=== PATIENT | female | born 1945 | race African-American/Black ===

== ENCOUNTER 2017-04-30 15:52 | Emergency (ER) | payer MEDICARE, MEDICAID ==
[~2017-04-30] VITALS: Ht 160 cm; Wt 55.0 kg
[2017-04-30 18:05] LABS: CLARITY URINE CLEAR (CLEAR); COLOR URINE YELLOW (YELLOW); KETONES URINE NEGATIVE (NEGATIVE); LEUKOCYTE ESTERASE URINE NEGATIVE (NEGATIVE); NITRITE URINE NEGATIVE (NEGATIVE); OCCULT BLOOD URINE TRACE (NEGATIVE); PH URINE 5.5 (4.5-8.0); PROTEIN URINE NEGATIVE (NEGATIVE); SPECIFIC GRAVITY URINE 1.007 (1.005-1.030); UROBILINOGEN URINE 0.2 E.U./dL (0.2-1.0)
[2017-04-30 18:08] LABS: BASOPHILS % 0.9 % (0.0-2.0); CHLORIDE 107 mEq/L (98-107); EOSINOPHILS % 0.8 % (0.0-5.0); HEMATOCRIT. 42.6 % (36.0-48.0); HEMOGLOBIN. 14.6 g/dL (12.0-16.0); LYMPHOCYTES % 20.5 % (20.0-50.0); MEAN CORPUSCULAR VOLUME 96.6 fL (81.0-99.0); MEAN PLATELET VOLUME 6.9 fl (7.4-10.4); MONOCYTES % 9.1 % (2.0-8.0); NEUTROPHILS % 68.7 % (40.0-76.0); PLATELET 325 x1000/uL (130-400); RED BLOOD CELL COUNT 4.41 mill/uL (4.2-5.4); RED CELL DISTRIBUTION WIDTH 13.5 % (11.6-14.6)
[2017-04-30 18:17] LABS: CARBON DIOXIDE 27 mEq/L (21-32); ETHANOL BLOOD < 10 mg/dL
[2017-04-30 18:32] LABS: *AMPHETAMINES SCREEN URINE NEGATIVE (NEGATIVE); *BARBITURATES SCREEN URINE NEGATIVE (NEGATIVE); *BENZODIAZEPINES SCREEN URINE NEGATIVE (NEGATIVE); *COCAINE SCREEN URINE NEGATIVE (NEGATIVE); CANNABINOID URINE SCREEN NEGATIVE (NEGATIVE); METHADONE URINE SCREEN NEGATIVE (NEGATIVE); OPIATES URINE SCREEN NEGATIVE (NEGATIVE); PHENCYCLIDINE URINE SCREEN NEGATIVE (NEGATIVE)
[2017-04-30 19:51] VITALS: BP 148/82
== END 2017-04-30 19:53 | disposition home or self-care (01) ==
LOC: ER 18:13 → CANBEDREQ 19:52 → ER 19:53
DX: K04.7 Periapical abscess without sinus (principal); K02.9 Dental caries, unspecified; E86.0 Dehydration; R13.10 Dysphagia, unspecified; J44.9 Chronic obstructive pulmonary disease, unspecified; I10 Essential (primary) hypertension; F17.210 Nicotine dependence, cigarettes, uncomplicated; E83.52 Hypercalcemia; E87.6 Hypokalemia
CPT/HCPCS: 36415; 70450; 80053; 80305; 81001; 82962; 85025; 87040; 87086; 93005; 99285; G0482

== ENCOUNTER 2019-03-06 17:34 | Inpatient (IN) | payer MEDICARE, MEDICAID ==
[~2019-03-06] VITALS: Ht 167.6 cm; Wt 48.1 kg
[2019-03-06] MEDS ORDERED: SODIUM CHLORIDE 0.9% 1,000 ML IV ONE (18:17)
[2019-03-06] MEDS ORDERED: ONDANSETRON HCL 4MG/2ML INJ IV STA (18:17)
[2019-03-06] MEDS ORDERED: MORPHINE SULFATE 4 MG/ML CPJ (NOT FOR IM USE) IV STA (18:17)
[2019-03-06 18:46] LABS: CHLORIDE 97 mEq/L (98-107)
[2019-03-06 18:48] LABS: PROTHROMBIN TIME 9.9 sec (9.6-11.0)
[2019-03-06 18:51] LABS: BASOPHILS % 0.6 % (0.0-2.0); EOSINOPHILS % 0.1 % (0.0-5.0); HEMATOCRIT. 42.8 % (36.0-48.0); HEMOGLOBIN. 14.7 g/dL (12.0-16.0); LYMPHOCYTES % 8.9 % (20.0-50.0); MEAN CORPUSCULAR HEMOGLOBIN 33.5 pg (28.0-32.0); MEAN CORPUSCULAR VOLUME 97.7 fL (81.0-99.0); MEAN PLATELET VOLUME 7.6 fl (7.4-10.4); MONOCYTES % 9.4 % (2.0-8.0); PLATELET 263 x1000/uL (130-400); RED BLOOD CELL COUNT 4.37 mill/uL (4.2-5.4); RED CELL DISTRIBUTION WIDTH 13.1 % (11.6-14.6)
[2019-03-06 20:48] LABS: CLARITY URINE CLEAR (CLEAR); COLOR URINE YELLOW (YELLOW); KETONES URINE TRACE (NEGATIVE); LEUKOCYTE ESTERASE URINE 2+ (NEGATIVE); NITRITE URINE NEGATIVE (NEGATIVE); OCCULT BLOOD URINE NEGATIVE (NEGATIVE); PROTEIN URINE 1+ (NEGATIVE); SPECIFIC GRAVITY URINE 1.024 (1.005-1.030)
[2019-03-06] MEDS ORDERED: PIPERACILLIN/TAZ 3.375G PREMIX 50 ML IV ONE (21:30)
[2019-03-06] MEDS ORDERED: ONDANSETRON HCL 4MG/2ML INJ IV PRN (21:45)
[2019-03-06] MEDS ORDERED: ACETAMINOPHEN 325MG TABLET PO PRN (21:45)
[2019-03-06] MEDS ORDERED: LORAZEPAM 0.5MG TABLET PO PRN (21:45)
[2019-03-06] MEDS ORDERED: LEVOFLOXACIN 500MG PREMIX 100 ML IV SCH (21:45)
[2019-03-06] MEDS ORDERED: DIPHENHYDRAMINE 50MG/ML VIAL IV PRN (21:45)
[2019-03-06] MEDS ORDERED: LEVOFLOXACIN 500MG PREMIX 100 ML IV NR (23:00)
[2019-03-06] MEDS ORDERED: DILT60TA35 PO (23:45)
[2019-03-07] VITALS: BP 132/77
[2019-03-07] MEDS ORDERED: HYDROMORPHONE HCL/PF 2MG/ML CPJ IV PRN (00:08)
[2019-03-07] MEDS: SODIUM CHLORIDE 0.9% 1,000 ML IV SCH ×3 (01:38→16:11)
[2019-03-07 04:00] VITALS: BP 145/81
[2019-03-07 06:12] LABS: BASOPHILS % 0.4 % (0.0-2.0); EOSINOPHILS % 0.2 % (0.0-5.0); HEMATOCRIT. 39.9 % (36.0-48.0); HEMOGLOBIN. 13.7 g/dL (12.0-16.0); LYMPHOCYTES % 12.1 % (20.0-50.0); MEAN CORPUSCULAR HEMOGLOBIN 33.6 pg (28.0-32.0); MEAN CORPUSCULAR VOLUME 98.1 fL (81.0-99.0); MEAN PLATELET VOLUME 7.5 fl (7.4-10.4); MONOCYTES % 14.4 % (2.0-8.0); NEUTROPHILS % 72.9 % (40.0-76.0); PLATELET 257 x1000/uL (130-400); RED BLOOD CELL COUNT 4.07 mill/uL (4.2-5.4); RED CELL DISTRIBUTION WIDTH 13.5 % (11.6-14.6)
[2019-03-07 06:28] LABS: CHLORIDE 104 mEq/L (98-107)
[2019-03-07 06:45] LABS: PHOSPHORUS 2.6 mg/dL (2.5-4.9)
[2019-03-07 08:00] VITALS: BP 145/71
[2019-03-07] MEDS ORDERED: FAMOTIDINE 20MG/2ML VIAL IV SCH ×3 (09:00)
[2019-03-07] MEDS: FAMOTIDINE 20MG/2ML VIAL IV SCH ×2 (09:06→20:10)
[2019-03-07] MEDS: KETOROLAC 30MG/ML VIAL IV PRN ×2 (09:06→21:15)
[2019-03-07] MEDS: NICOTINE 14MG PATCH TD SCH (09:07)
[2019-03-07] MEDS ORDERED: IOHEXOL-300 100 ML BOTTLE ONE (10:12)
[2019-03-07 11:52] VITALS: BP 131/73
[2019-03-07 16:54] VITALS: BP 130/66
[2019-03-07 20:00] VITALS: BP 167/78
[2019-03-07] MEDS: LEVOFLOXACIN 250MG PREMIX 50 ML IV SCH (20:11)
[2019-03-07] MEDS: CLONIDINE 0.1MG TABLET PO PRN (21:11)
[2019-03-08] VITALS: BP 133/75
[2019-03-08] MEDS: SODIUM CHLORIDE 0.9% 1,000 ML IV SCH ×3 (00:25→16:49)
[2019-03-08 06:32] VITALS: BP 147/79
[2019-03-08 08:00] VITALS: BP 160/75
[2019-03-08] MEDS: NICOTINE 14MG PATCH TD SCH (08:40)
[2019-03-08] MEDS: FAMOTIDINE 20MG/2ML VIAL IV SCH (08:40)
[2019-03-08 12:00] VITALS: BP 110/77
[2019-03-08] MEDS: KETOROLAC 30MG/ML VIAL IV PRN ×2 (12:49→20:27)
[2019-03-08 16:00] VITALS: BP 152/74
[2019-03-08 20:00] VITALS: BP 123/80
[2019-03-08] MEDS: LEVOFLOXACIN 250MG PREMIX 50 ML IV SCH (20:16)
[2019-03-08] MEDS ORDERED: HYDRALAZINE 20MG/ML VIAL IV PRN (20:45)
[2019-03-08] MEDS: HYDRALAZINE 10 MG in SODIUM CHLORIDE 0.9% 49.5 ML IV PRN (23:28)
[2019-03-09] VITALS: BP 176/77
[2019-03-09] MEDS: SODIUM CHLORIDE 0.9% 1,000 ML IV SCH ×3 (00:27→16:08)
[2019-03-09 04:00] VITALS: BP 177/83
[2019-03-09] MEDS: HYDRALAZINE 10 MG in SODIUM CHLORIDE 0.9% 49.5 ML IV PRN ×3 (05:29→22:13)
[2019-03-09 06:33] LABS: HEMATOCRIT. 39.8 % (36.0-48.0); HEMOGLOBIN. 13.3 g/dL (12.0-16.0); MEAN CORPUSCULAR HEMOGLOBIN 33.2 pg (28.0-32.0); MEAN CORPUSCULAR VOLUME 99.2 fL (81.0-99.0); MEAN PLATELET VOLUME 7.6 fl (7.4-10.4); PLATELET 280 x1000/uL (130-400); RED BLOOD CELL COUNT 4.01 mill/uL (4.2-5.4); RED CELL DISTRIBUTION WIDTH 12.8 % (11.6-14.6)
[2019-03-09 06:34] LABS: CHLORIDE 110 mEq/L (98-107)
[2019-03-09 06:40] LABS: PHOSPHORUS 2.2 mg/dL (2.5-4.9)
[2019-03-09 08:00] VITALS: BP 154/68
[2019-03-09] MEDS: NICOTINE 14MG PATCH TD SCH (08:54)
[2019-03-09] MEDS: FAMOTIDINE 20MG/2ML VIAL IV SCH (08:54)
[2019-03-09] MEDS: KETOROLAC 30MG/ML VIAL IV PRN (08:54)
[2019-03-09 12:00] VITALS: BP 152/74
[2019-03-09 16:00] VITALS: BP 164/81
[2019-03-09] MEDS ORDERED: LORAZEPAM 2MG/ML CPJ IV PRN (18:00)
[2019-03-09 20:00] VITALS: BP 166/84
[2019-03-09] MEDS ORDERED: DEXT 5%/0.9% NACL 1,000 ML IV SCH (20:15)
[2019-03-09] MEDS: LEVOFLOXACIN 250MG PREMIX 50 ML IV SCH (21:01)
[2019-03-09] MEDS ORDERED: POTASSIUM PHOS,M-BASIC-D-BASIC 15 MMOL in DEXT 5% WATER 245 ML IV NR (21:30)
[2019-03-09] MEDS: DEXT 5%/0.9% NACL 1,000 ML IV SCH (23:02)
[2019-03-10] VITALS: BP 127/70
[2019-03-10] MEDS ORDERED: ENOXAPARIN 60MG/0.6ML SYR SUBCUT SCH (03:00)
[2019-03-10 04:00] VITALS: BP 139/81
[2019-03-10 07:15] LABS: ATYPICAL LYMPHOCYTES 2; PLATELET ESTIMATE NORMAL
[2019-03-10] MEDS: KETOROLAC 30MG/ML VIAL IV PRN (07:38)
[2019-03-10 08:00] VITALS: BP 149/82
[2019-03-10] MEDS ORDERED: ENOXAPARIN 30MG/0.3ML SYR SUBCUT SCH (09:00)
[2019-03-10] MEDS: NICOTINE 14MG PATCH TD SCH (10:48)
[2019-03-10] MEDS: FAMOTIDINE 20MG/2ML VIAL IV SCH (10:48)
[2019-03-10] MEDS: HYDROMORPHONE HCL/PF 2MG/ML CPJ IV PRN ×2 (10:57→15:06)
[2019-03-10 12:00] VITALS: BP 129/72
[2019-03-10 16:00] VITALS: BP 129/67
[2019-03-10] MEDS: DEXT 5%/0.9% NACL 1,000 ML IV SCH (17:21)
[2019-03-10 20:00] VITALS: BP 149/76
[2019-03-10] MEDS: LEVOFLOXACIN 250MG PREMIX 50 ML IV SCH (21:40)
[2019-03-11] VITALS: BP 139/76
[2019-03-11 04:00] VITALS: BP 156/76
[2019-03-11 08:00] VITALS: BP 155/67
[2019-03-11] MEDS: FAMOTIDINE 20MG/2ML VIAL IV SCH (08:37)
[2019-03-11] MEDS: ENOXAPARIN 40MG/0.4ML SYR SUBCUT SCH (08:38)
[2019-03-11] MEDS: NICOTINE 14MG PATCH TD SCH (08:39)
[2019-03-11] MEDS: DEXT 5%/0.9% NACL 1,000 ML IV SCH (08:41)
[2019-03-11 12:00] VITALS: BP 148/78
[2019-03-11 16:00] VITALS: BP 140/77
[2019-03-11 20:00] VITALS: BP 174/89
[2019-03-11] MEDS: AMLODIPINE 5MG TABLET PO SCH (20:33)
[2019-03-11] MEDS: LEVOFLOXACIN 250MG PREMIX 50 ML IV SCH (20:34)
[2019-03-11] MEDS: IPRATROPIUM/ALBUTEROL 0.5-3(2.5)MG/3ML NEB HHN PRN (20:50)
[2019-03-11] MEDS: BUDESONIDE 0.5MG/2ML NEB HHN SCH (20:51)
[2019-03-11] MEDS: CLONIDINE 0.1MG TABLET PO PRN (23:43)
[2019-03-12] VITALS: BP 166/73
[2019-03-12 04:00] VITALS: BP 145/69
[2019-03-12 08:00] VITALS: BP 147/77
[2019-03-12] MEDS: NICOTINE 14MG PATCH TD SCH (09:00)
[2019-03-12] MEDS: AMLODIPINE 5MG TABLET PO SCH (09:09)
[2019-03-12] MEDS: FAMOTIDINE 20MG/2ML VIAL IV SCH (09:11)
[2019-03-12] MEDS: ENOXAPARIN 40MG/0.4ML SYR SUBCUT SCH (09:11)
[2019-03-12] MEDS: IPRATROPIUM/ALBUTEROL 0.5-3(2.5)MG/3ML NEB HHN PRN (09:40)
[2019-03-12] MEDS: BUDESONIDE 0.5MG/2ML NEB HHN SCH (09:41)
[2019-03-12 12:00] VITALS: BP 158/83
[2019-03-12 14:17] VITALS: BP 158/83
[2019-03-12] MEDS ORDERED: LEVOFLOXACIN 250MG TABLET PO SCH (21:00)
== END 2019-03-12 15:02 | disposition home or self-care (01) | DRG 683 ==
LOC: ER 17:34 → 6EST 21:32 → EDBEDREQTM 21:34 → EDBEDREQSVC 21:34 → EDBEDREQ 21:34 → ENRESERV 23:03 → 6EST 03-11 23:56
PROVIDERS: ADMIT Internal Medicine; ATTEND Internal Medicine
PROC: 0D9670Z Drainage of Stomach with Drainage Device, Via Natural or Artificial Opening (ICD-10-PCS; principal; 2019-03-08)
DX: N17.9 Acute kidney failure, unspecified (principal); K56.609 Unspecified intestinal obstruction, unspecified as to partial versus complete obstruction; E86.0 Dehydration; J44.9 Chronic obstructive pulmonary disease, unspecified; I10 Essential (primary) hypertension; F17.200 Nicotine dependence, unspecified, uncomplicated; Z90.49 Acquired absence of other specified parts of digestive tract; Z88.9 Allergy status to unspecified drugs, medicaments and biological substances; Z88.8 Allergy status to other drugs, medicaments and biological substances
CPT/HCPCS: 36415; 71045; 74018; 74177; 74250; 78580; 80048; 83605; 83735; 84100; 85379; 93005; 96365; 96368; 96375; 99285; J0360; J1170; J1650; J1885; J1956; J2060; J2270; J2405; J2543; J3490; J7030; J7042; J7060; J7620; J7626; Q9967

== ENCOUNTER → 2019-11-20 | Outpatient (CLI) | payer MEDICARE, MEDICAID | END | disposition home or self-care (01) | LOC: CARD 13:02 | PROVIDERS: ATTEND Internal Medicine | DX: Z01.818 Encounter for other preprocedural examination (principal); H26.8 Other specified cataract; I21.09 ST elevation (STEMI) myocardial infarction involving other coronary artery of anterior wall | CPT/HCPCS: 93005 ==

== ENCOUNTER 2019-12-02 08:34 | Day surgery (SDC) | payer MEDICARE, MEDICAID ==
[~2019-12-02] VITALS: Ht 154.9 cm; Wt 43.1 kg
[~2019-12-02 08:34] MED LIST: ASCO-339 PO; BALANCED SALT IRRIG SOLN COMB1 500ML OP ONE; CHOL400C8 PO; CYCLOPENTOLATE HCL 1% OPHTH DROPS 2ML LEFTEYE ONE; DILT360C31 PO; LACTATED RINGERS 1,000 ML IV SCH; PHENYLEPHRINE HCL 10% OPHTH DROPS 5ML LEFTEYE ONE; POTA99TA15 PO; TIOT18CA3 IH; TROPICAMIDE 1% OPHTH DROPS 15ML LEFTEYE ONE; VITA1TAB20 PO
[2019-12-02 10:21] LABS: CHLORIDE 110 mEq/L (98-107)
[2019-12-02] MEDS ORDERED: TETRACAINE 0.5% OPHTH DROPS 4ML ONE (10:49)
[2019-12-02] MEDS ORDERED: LIDOCAINE HCL/PF 2% 20 MG/ML 10ML VIAL ONE (10:49)
[2019-12-02] MEDS ORDERED: CIPROFLOXACIN 0.3% OPHTH SOLN 2.5ML ONE (10:49)
[2019-12-02] MEDS ORDERED: PREDNISOLONE ACETATE 1% OPHTH DROPS 5ML ONE (10:49)
[2019-12-02] MEDS ORDERED: BALANCED SALT IRRIG SOLN 15ML ONE (10:49)
[2019-12-02] MEDS ORDERED: ALBU90AE INH (11:50)
[2019-12-02] MEDS ORDERED: FENTANYL CITRATE/PF 50MCG/ML 2ML VIAL ONE (12:27)
[2019-12-02] MEDS ORDERED: DIPHENHYDRAMINE 50MG/ML VIAL ONE (12:28)
[2019-12-02] MEDS ORDERED: MIDAZOLAM HCL 2 MG/2 ML VIAL ONE (12:28)
[2019-12-02] MEDS ORDERED: HYALURONATE SODIUM 10 MG/ML 0.55ML SYRINGE IO ONE (12:30)
== END 2019-12-02 14:40 | disposition home or self-care (01) ==
LOC: OR 08:34
PROVIDERS: ATTEND Ophthalmology
DX: H25.89 Other age-related cataract (principal); J44.9 Chronic obstructive pulmonary disease, unspecified; I10 Essential (primary) hypertension; F17.210 Nicotine dependence, cigarettes, uncomplicated; Z98.890 Other specified postprocedural states; Z79.899 Other long term (current) drug therapy; Z88.8 Allergy status to other drugs, medicaments and biological substances; Z72.89 Other problems related to lifestyle
CPT/HCPCS: 36415; 66984; 80048; J1200; J2250; J3010; J3490; V2632

== ENCOUNTER 2025-06-07 14:17 | Emergency (ER) | payer MEDICARE, MEDICAID ==
[~2025-06-07] VITALS: Ht 152.4 cm; Wt 40.0 kg
[~2025-06-07 14:17] MED LIST changes: +ALBU90AE INH; -BALANCED SALT IRRIG SOLN COMB1 500ML OP ONE; -CYCLOPENTOLATE HCL 1% OPHTH DROPS 2ML LEFTEYE ONE; +DILT360C23 PO; -DILT360C31 PO; -LACTATED RINGERS 1,000 ML IV SCH; -PHENYLEPHRINE HCL 10% OPHTH DROPS 5ML LEFTEYE ONE; -TROPICAMIDE 1% OPHTH DROPS 15ML LEFTEYE ONE; +VITA-384 PO; -VITA1TAB20 PO
[2025-06-07 14:21] VITALS: BP 102/65; PULSE 79; RESP 24; TEMP 36.9; O2SAT 96
[2025-06-07] MEDS ORDERED: ALBU18HF2 IH ×2 (15:28→16:44)
[2025-06-07] MEDS ORDERED: TIOT18CA3 INH (15:28)
[2025-06-07 15:34] LABS: BASOPHILS % 1.1 % (0.0-2.0); EOSINOPHILS % 0.5 % (0.0-5.0); HEMATOCRIT. 38.0 % (36.0-48.0); HEMOGLOBIN. 12.9 g/dL (12.0-16.0); LYMPHOCYTES % 12.9 % (20.0-50.0); MEAN PLATELET VOLUME 6.8 fl (7.4-10.4); MONOCYTES % 10.7 % (2.0-8.0); NEUTROPHILS % 74.8 % (40.0-76.0); PLATELET 290 x1000/uL (130-400); RED BLOOD CELL COUNT 3.83 mill/uL (4.2-5.4); RED CELL DISTRIBUTION WIDTH 13.2 % (11.6-14.6)
[2025-06-07 15:46] LABS: CREATININE 0.7 mg/dL (0.6-1.0); TROPONIN I HIGH SENSITIVITY 14 ng/L (3.0-34); UREA NITROGEN BLOOD 10 mg/dL (9-23)
== END 2025-06-07 15:58 | disposition left against medical advice (07) ==
LOC: ER 14:17 → CANBEDREQ 15:50 → ER 15:58
DX: J44.9 Chronic obstructive pulmonary disease, unspecified (principal); R06.02 Shortness of breath; I10 Essential (primary) hypertension; Z90.49 Acquired absence of other specified parts of digestive tract; Z53.29 Procedure and treatment not carried out because of patient's decision for other reasons
CPT/HCPCS: 36415; 71045; 80048; 83880; 84484; 85025; 93005; 99285